=== PATIENT | male | born 1950 | race Caucasian/White ===

== ENCOUNTER 2018-07-03 13:09 | Inpatient (IN) | payer MEDICARE ==
[~2018-07-03] VITALS: Ht 177.8 cm; Wt 133.7 kg
[2018-07-03 13:45] LABS: Source, Urine Clean Catch
[2018-07-03 13:57] LABS: Bilirubin, Urine Neg (Neg); Blood, Urine Neg (Neg); Glucose Qualitative, Urine Neg (Neg); Ketones, Urine 3+ (Neg); Leukocyte Esterase, Urine Neg (Neg); Nitrite, Urine Neg (Neg); Protein, Urine 3+ (Neg); Specific Gravity, Urine 1.015 (1.003-1.022); Urobilinogen, Urine NORM (Normal)
[2018-07-03 14:04] LABS: BASOPHILS ABSOLUTE AUTO 0.05 K/mm3 (0.00-0.23); BASOPHILS PERCENT AUTO 1 % (0-2); EOSINOPHILS ABSOLUTE AUTO 0.05 K/mm3 (0.00-0.68); EOSINOPHILS PERCENT AUTO 1 % (0-6); Hematocrit 44.5 % (37.0-53.0); Hemoglobin 15.1 g/dL (13.5-17.5); IMMATURE GRAN ABSOLUTE AUTO 0.02 K/mm3 (0.00-0.10); IMMATURE GRAN PERCENT AUTO 0 % (0-1); LYMPHOCYTES ABSOLUTE AUTO 1.11 K/mm3 (0.84-5.20); LYMPHOCYTES PERCENT AUTO 16 % (21-46); MONOCYTES ABSOLUTE AUTO 0.31 K/mm3 (0.16-1.47); MONOCYTES PERCENT AUTO 5 % (4-13); Mean Corpuscular HGB 30.5 pg (26.0-34.0); Mean Corpuscular HGB Conc 33.9 g/dL (31.5-36.5); Mean Corpuscular Volume 90 fL (80-100); Mean Platelet Volume 9.9 fL (9.1-12.4); NEUTROPHILS ABSOLUTE AUTO 5.31 K/mm3 (1.96-9.15); NEUTROPHILS PERCENT AUTO 78 % (41-73); Platelet Count 183 K/mm3 (150-400); RDW Coefficient Variation 12.2 % (11.7-14.2); RDW Standard Deviation 39.7 fL (35.1-46.3); Red Blood Cell Count 4.95 M/mm3 (4.30-5.90); White Blood Cell Count 6.85 K/mm3 (4.00-11.30)
[2018-07-03 14:25] LABS: Appearance, Urine Clear (Clear); Color, Urine Yellow (P-Yellow)
[2018-07-03 14:26] LABS: Bacteria Few /hpf; Red Blood Cells, Urine 0-2 /hpf (0-2); Squamous Epithelial Cells Few /hpf (Few); White Blood Cells, Urine 0-2 /hpf (0-5)
[2018-07-03 14:35] LABS: Alanine Aminotransfer (ALT/SGP 27 U/L (12-78); Albumin/Globulin Ratio 1.1 (0.8-1.8); Alk Phos 102 U/L (50-136); Anion Gap 9 mmol/L (6-16); Aspartate Aminotrans (AST/SGOT 15 U/L (12-37); Bilirubin, Total 0.9 mg/dL (0.1-1.0); Blood Urea Nitrogen 11 mg/dL (8-24); Bun/Creatinine Ratio 14.8 (12.0-20.0); CO2, Blood 27 mmol/L (21-32); Calcium, Blood 8.7 mg/dL (8.5-10.1); Chloride, Blood 104 mmol/L (98-108); Creatinine, Blood 0.74 mg/dL (0.60-1.20); Globulin, Blood 3.6 g/dL (2.2-4.0); Glomerular Filtration Rate >60 (60-); Glucose, Blood 109 mg/dL (70-99); Potassium, Blood 3.1 mmol/L (3.5-5.5); Sodium, Blood 140 mmol/L (136-145); Total Protein, Blood 7.6 g/dL (6.4-8.2)
[2018-07-03] MEDS ORDERED: TAMS.4ER PO (18:36)
[2018-07-03] MEDS ORDERED: AMLO5 PO (18:38)
[2018-07-03] MEDS ORDERED: LISI5 PO (18:38)
--- NOTE | 2018-07-03 19:30 | NUR ---
ASSUMED CARE PT RESTING IN ROOM COMFORTBALY W/ S/O AT BEDSIDE. PER DAY SHIFT PT CAME TO UMIT FROM ED AT SHIFT CHANGE. PT WAS BROUGHT BY AMBULANCE TO ED FOR STROKE LIKE SYMPTOMS. PT HAS L SIDED WEAKNESS AND DEFICITS, W/ L FACIAL DROOP. PT REPORTS NUMBNESS TO L ARM AND LEG. REFLEXES INTACT ON L HAND AND FOOT. DICE MANAGER IS VERY WEAK TO L HAND. EYE MOVMENT BRISK. SPEECH IS SLOW TO RESPOND, PT REPORTS TONGUE FEELS NUMB. PT HAD HIGH BP UPON ARRIVAL, WILL MONITOR. LR INFUSING IN PIV. PT DENIES PAIN OR SOB. RESP EVEN UNLBAORED ON RA W/ SATS >92%. CONDOM CATH IN PLACE D/T INCONTINENCE. CALL LIGHT IS IN REACH.
--- NOTE | 2018-07-03 19:53 | NUR ---
SHIFT SUMMARY ASSUMED CARE OF PT FROM ED @1820. PT TO ROOM VIA [facility] WITH ED NURSE JUDD HYLTON. PT TALKING TO STAFF HE ROLLED IN. NOTICEABLE LEFT FACIAL DROOP, SLIGHTLY SLURRED SPEECH, LEFT ARM AND LEG DEFICITS. PT HAS TWO IV LINES, FLUSHED WITH 10 NS, LR STARTED 50ML/HR. NO DEFICITS NOTED RIGHT SIDE, STRONG. LEFT LEG ABLE TO SHOW SLIGHT MOVEMENT, REPORTS NUMBNESS BUT CAN IDENTIFY WHAT TOE THIS NURSE IS TOUCHING. NO TOE MOVEMENT. LA ABLE TO MOVE SLIGHTLY, LH ASSOCIATE DIRECTOR CAREER SERVICES SUBTLE BUT NOTICEABLE. EOM ASSESSED. NO DEFICIT RIGHT SIDE, LEFT SIDE DELAYED. NYSTAGMUS NOTED IN LEFT EYE UPON ASSESMENT. PT STATES TONGUE IS NUMB AND FEELS "LARGE". PERIPHERAL PULSES STRONG X 4. LUNG SOUNDS CLEAR TO AUSCULTATION. BEDSIDE QUICK EVAL COMPLETED BY KISHAN KAT RN TO DETERMINE IF MEDS CAN BE GIVEN WITH APPLESAUCE. PT TOLERATES MEDS WITH APPLESAUCE WELL. BP UPON ADMISSION TO PCU [address] MORRISSEY, LISINOPRIL GIVEN EARLY. CONDOM CATH PLACED DUE TO INCONTINENCE AND REPORTED PRESSURIZED URINATING IN ED. REPORT GIVEN TO ONCOMING NURSE.
[2018-07-04 04:28] LABS: BASOPHILS ABSOLUTE AUTO 0.03 K/mm3 (0.00-0.23); BASOPHILS PERCENT AUTO 1 % (0-2); EOSINOPHILS ABSOLUTE AUTO 0.09 K/mm3 (0.00-0.68); EOSINOPHILS PERCENT AUTO 1 % (0-6); Hematocrit 42.9 % (37.0-53.0); Hemoglobin 14.5 g/dL (13.5-17.5); IMMATURE GRAN ABSOLUTE AUTO 0.02 K/mm3 (0.00-0.10); IMMATURE GRAN PERCENT AUTO 0 % (0-1); LYMPHOCYTES ABSOLUTE AUTO 1.48 K/mm3 (0.84-5.20); LYMPHOCYTES PERCENT AUTO 23 % (21-46); MONOCYTES ABSOLUTE AUTO 0.41 K/mm3 (0.16-1.47); MONOCYTES PERCENT AUTO 7 % (4-13); Mean Corpuscular HGB 30.5 pg (26.0-34.0); Mean Corpuscular HGB Conc 33.8 g/dL (31.5-36.5); Mean Corpuscular Volume 90 fL (80-100); Mean Platelet Volume 9.9 fL (9.1-12.4); NEUTROPHILS ABSOLUTE AUTO 4.29 K/mm3 (1.96-9.15); NEUTROPHILS PERCENT AUTO 68 % (41-73); Platelet Count 182 K/mm3 (150-400); RDW Coefficient Variation 12.3 % (11.7-14.2); RDW Standard Deviation 40.3 fL (35.1-46.3); Red Blood Cell Count 4.76 M/mm3 (4.30-5.90); White Blood Cell Count 6.32 K/mm3 (4.00-11.30)
[2018-07-04 04:46] LABS: Alanine Aminotransfer (ALT/SGP 21 U/L (12-78); Albumin, Blood 3.6 g/dL (3.4-5.0); Albumin/Globulin Ratio 1.1 (0.8-1.8); Alk Phos 82 U/L (50-136); Anion Gap 7 mmol/L (6-16); Aspartate Aminotrans (AST/SGOT 12 U/L (12-37); Blood Urea Nitrogen 9 mg/dL (8-24); Bun/Creatinine Ratio 11.7 (12.0-20.0); CO2, Blood 29 mmol/L (21-32); Calcium, Blood 8.6 mg/dL (8.5-10.1); Chloride, Blood 106 mmol/L (98-108); Creatinine, Blood 0.77 mg/dL (0.60-1.20); Globulin, Blood 3.4 g/dL (2.2-4.0); Glomerular Filtration Rate >60 (60-); Glucose, Blood 115 mg/dL (70-99); Magnesium, Blood 2.3 mg/dL (1.6-2.4); Phosphorus, Blood 2.7 mg/dL (2.5-4.9); Sodium, Blood 142 mmol/L (136-145)
--- NOTE | 2018-07-04 06:44 | NUR ---
SHIFT SUMMARY PT RESTING IN ROOM COMFORTABLY W/ FAMILY AT BEDSIDE. PT HAD NO ACUTE CHANGES IN STATUS OVERNIGHT. NEURO CHECKS PERFORED Q2HRS, NO CHANGES, CONT TO HAVE L SIDED DEFECITS. RESP EVEN UNLABORED ON RA W/ SATS >92%. DENIES CP OR SOB. PT HAS CONCOM CATH IN PLACE DRAINING TO GRAVITY. DENIES OTHER NEEDS. CALL LIGHT IN REACH.
--- NOTE | 2018-07-04 17:45 | NUR ---
CIWA CONTINUALLY INCREASING. PT MEDICATED PER EMAR AND PARAMETERS FOR CIWA SCORE WITH NO IMPROVEMENT. DR. SALVADOR CALLED AND ORDERS FOR PRECEDEX DRIP AND TRANSFER TO ICU. PT INFORMED AND STARTED PUNCHING WALL AND YELLING. ELMO NOWAK CALLED AND SECURITY IN ROOM. PT CALMED DOWN AND APOLOGIZED. PT HAD RIPPED OFF BAKARI VEST SOON IT WAS PLACED ON. REPORT CALLED TO ICU NURSE. PT TAKEN TO ICU.
--- NOTE | 2018-07-04 18:10 | NUR ---
SHIFT SUMMARY PT ALERT AND ORIENTED TO SELF, FAMILY, DATE, SITUATION. BP HAS BEEN ELEVATED THROUGHOUT SHIFT, AND DR. HERNANDEZ NOTIFIED. DR. HERNANDEZ STATES TO MEDICATE IF SBP >200. FAMILY AT BEDSIDE ALL SHIFT. PT WORKED WITH PT THIS SHIFT. SPEECH THERAPY ALSO EVALUATED AND NEW ORDERS FOR PRECAUTIONS. CONDOM CATH IN PLACE FOR COMFORT. NO OTHER CHANGES THIS SHIFT. WILL CONTINUE TO MONITOR AND REPORT TO ONCOMING RN. CALL LIGHT IN REACH.
[2018-07-05 04:23] LABS: Anion Gap 5 mmol/L (6-16); Blood Urea Nitrogen 10 mg/dL (8-24); Bun/Creatinine Ratio 13.1 (12.0-20.0); CO2, Blood 30 mmol/L (21-32); Calcium, Blood 8.8 mg/dL (8.5-10.1); Chloride, Blood 107 mmol/L (98-108); Creatinine, Blood 0.76 mg/dL (0.60-1.20); Glomerular Filtration Rate >60 (60-); Glucose, Blood 118 mg/dL (70-99); Potassium, Blood 3.5 mmol/L (3.5-5.5); Sodium, Blood 142 mmol/L (136-145)
--- NOTE | 2018-07-05 04:44 | NUR ---
SHIFT SUMMARY PT A&O X4. PT CONTINUES TO HAVE L SIDED DEFICIT. LUNG SOUNDS CLEAR T/O. SPO2 > 92% ON RA. MONITOR SHOWS NSR, HR 70'S. BP CONTINUES TO BE ELEVATED, BUT BELOW PRN HYDRALAZINE PARAMATERS, SEE VS. OTHERWISE VSS. Q2H REPOSITIONING PROVIDED, PT ABLE TO ASSIST W/ REPOSITIONING. CONDOM CATH PATENT AND DRAINING CLEAR DARK YELLOW URINE. LR GTT INFUSING PER ORDERS. SON AT BEDSIDE AT BEGINNING OF SHIFT STATING PREFERENCE FOR PT TO DISCHARGE TO SNF IN [place] WHEN READY FOR DISCHARGE. PT IN BED W/ CALL LIGHT IN REACH. WILL CONTINUE TO MONITOR AND PROVIDE CARE UNTIL REPORT OFF TO DAY SHIFT RN.
--- NOTE | 2018-07-05 07:51 | NUR ---
AM NOTE. ASSUMED CARE OF PT APROX 0700, PT IS A&Ox4, PT WAS ADMITTED DUE TO CVA W/LEFT SIDED WEAKNESS, PT STATES HE HAS FEELING IN THE LEFT SIDE BUT JUST CANNOT "MAKE ANYTHING WORK." PT WAS REQUESTING TO GET UP IN A CHAIR TODAY AND HAVE A BATH. TELE INTACT, NSR IN THE 70'S PER WORK ENVIRONMENT SAFETY INSPECTOR, BP169/102, TRACE EDEMA NOTED TO THE PT'S BLLE. L/S CLEAR T/O ON RA WITH SATS >90%. BT PRESENT AND HYPOACTIVE,ABD IS SLIGHTLY FRIM AND NONTENDER TO PALP. SON AT THE BEDSIDE IS REQUESTING AND UPDATE FROM PROVIDER ON MRI RESULTS AND STATUS UPDATE. CALL LIGHT IN REACH, BED IS LOCKED AND LOW WILL CONTINUE TO MONITOR.
--- NOTE | 2018-07-05 18:17 | NUR ---
SHIFT SUMMARY. NO ACUTE CHANGES NOTED, PT WAS SEEN BY P.T. 2 TIMES TODAY WITH GOOD RESULTS. PT'S VS HAVE BEEN STABLE T/O SHIFT. PT IS CURRENTLY MED NO TELE STATUS, WHEN TELE WAS D/C'D THE PT HAD NOT HAD ANY CARDIAC EVENTS ON TELE. PT'S SON AND S.O. HAVE BEEN AT THE BEDSIDE MOST OF THE DAY. THE PT'S SON DROVE DOWN TO [place] TO TOUR A SNF THAT HE WOULD LIKE THE PT BE D/C'D TO. OUTSIDE LABORER HAS BEEN CONSULTED FOR D/C PLANNING. PT REQUESTED TO GET UP IN A W/C TO GET OUTSIDE OF HIS ROOM, [facility]ICHARD LIFT WAS USED AND PT IS CURRENTLY UP IN W/C. CALL LIGHT IN REACH, WILL CONTINUE TO MONITOR UNTIL REPORT IS GIVEN TO ONCOMING RN.
[2018-07-06 04:29] LABS: Anion Gap 6 mmol/L (6-16); Blood Urea Nitrogen 13 mg/dL (8-24); Bun/Creatinine Ratio 16.6 (12.0-20.0); CO2, Blood 29 mmol/L (21-32); Calcium, Blood 8.9 mg/dL (8.5-10.1); Chloride, Blood 107 mmol/L (98-108); Creatinine, Blood 0.79 mg/dL (0.60-1.20); Glomerular Filtration Rate >60 (60-); Glucose, Blood 115 mg/dL (70-99); Potassium, Blood 3.4 mmol/L (3.5-5.5); Sodium, Blood 142 mmol/L (136-145)
--- NOTE | 2018-07-06 04:29 | NUR ---
SHIFT SUMMARY PT A&O X4 W/ L FACIAL DROOP, L-SIDED DEFICIT, UNABLE TO MOVE L ARM AND L LEG. PT IN WHEELCHAIR OUTSIDE OF ROOM W/ FAMILY AT BEGINNING OF SHIFT, TRANSFERRED BACK TO BED W/ LIFT. Q2H REPOSITIONING BY STAFF. LUNG SOUNDS CLEAR T/O. SPO2 > 90% ON RA. MONITOR SHOWS NSR. BP'S CONTINUE TO BE HYPERTENSIVE, NOT REQUIRING PRN HYDRALAZINE. PT NOW VOIDING IN URINAL W/ EPISODES OF INCONTINENCE. WILL CONTINUE TO MONITOR AND PROVIDE CARE UNTIL REPORT OFF TO DAY SHIFT RN.
--- NOTE | 2018-07-06 11:25 | NUR ---
AM NOTE PT ALERT AND COOPERATIVE. SR. GAPS IN MEMORY NOTED. TALKED WITH PT ABOUT SWALLOW PRECAUTIONS, MEALS, FLUIDS. NOTED POSSIBEL FOOT DROP LEFT FOOT. PLACED A JONNATHAN BOOT ON LEFT FOOT. ROM TO LEFT LEG DONE. PT C/O OF LEFT SHOULDER BEING SORE. PT HAS NO MOVEMENT LEFT UE. HIS ARM FLOOPS ALL OVER. STAFF HAS BEEN CUEING HIM TO PROTECT AND HOLD HIS LEFT ARM WITH HIS RIGHT ARM. SLING IN ROOM FOR WHEN WE GET HIM UP. BP ELEVATED. HYDRALAZINE 5MG GIVEN X1. BP DID DECREASE PRIOR TO AM MEDICATIONS. DR HERNANDEZ ORDER AN INCREASE IN LISINORIL DOSE AND TO START METOPROLOL. PT ABLE TO TAKE PILLS WITH APPLESAUCE WITHOUT DIFFICULY. PT ABLE TO FEED HIMSELF WITH SET UP. PT INTERMITANTLY EFFECTIVE WITH URINAL. CONDOM CATH WAS TRIED EARLIER IN ADMISSION AND WAS REPORTED TO BE INEFFECTIVE. WORKING WITH PT TO USE HIS URINAL HIMSELF. PT FATIGUES QUICKLY. CONTINUE POT.
--- NOTE | 2018-07-06 13:50 | NUR ---
TRANSFER TO 327 PT REPORT CALLED TO RECEIVING RN. PT CURRENTLY PARTICIPATION IN P.T. WILL TRANSFER AFTER. CONTINUE POT.
--- NOTE | 2018-07-06 17:19 | NUR ---
PT A PCU TRANSFER THIS AFTERNOON. PT A/OX4. PT WITH CVA WITH LEFT SIDE DEFECIT. LEFT ARM FLACCID, PT COULD NOT MOVE FINGERS BUT DOES HAVE SOME INVOLUNTARY REFLEX AT TIMES. PT IS ABLE TO PUSH WITH LEFT LEG WHEN IT IS BENT UNABLE TO MOVE OR WIGGLE TOES WHEN LEG IS STRAIGHT. LEFT FACIAL DROOP, NO DEFECIT NOTED WITH SWALLOWING. PUPILS EQUAL, NOTED TO HAVE A FLUTTER TO BILATERAL EYES WHICH PT SPOUSE REPORTS HIS EYES HAVE AWLAYS "DANCED" PT ABLE TO ASSIST WITH REPOSITIONING IN BED. LIFT UP TO CHAIR THIS AFTERNOON. LS CLEAR, ON RA. HRR. SLING TO LEFT ARM AND ELEVATED ON PILLOWS, HEAL PROTECTOR TO LEFT FOOT. PT VOIDS SMALL AMOUNTS, POST VOID BLADDER SCAN OF 0. PT AWAITING IRU BED AT THIS TIME. NO OTHER ACUTE CHANGES SINCE ARRIVAL TO FLOOR.
--- NOTE | 2018-07-06 17:34 | NUR ---
SHIFT SUMMARY PATIENT ARRIVED FROM PCU AT 1400. PATIENT IS COOPERATIVE. USED RICHARD LIFT TO GET PATIENT TO CHAIR FOR APPROX 30 MINUTES, PATIENT TOLERATED WELL. ONCE PATIENT WAS BACK IN BE PATIENT ATTEMPTED TO HAVE A BOWEL MOVMENT, BUT ONLY PASSED GAS. PATIENT IS USING URINAL, HE STATES THAT WHEN HE NEEDS TO GO IT IS A SUDDEN URGENCY AND HE DOSENT ALWAYS MAKE IT. PATIENTS AND SON ARE AT BEDSIDE.
--- NOTE | 2018-07-06 21:32 | NUR ---
APPROXIMATELY 20:15 HRS: GAVE MEDS PER EMAR AND ASSESSED PATIENT; PATIENT IS AO X3, DENIES PAIN AT THIS TIME. HE IS ABLE TO HELP REPOSITION HIMSELF, AND TAKES HIS MEDS WHOLE IN APPLESAUCE TONIGHT. NEURO CHECKS FIND CONTINUED LEFT SIDE WEAKNESS, THE LUE IS FLACCID AND FALLS TO THE BED, THE LLE FUNCTION ALSO FALLS TO GRAVITY. HE CAN PUSH HIS LEFT HEEL ALONG HIS RIGHT CALF IF POSITIONED TO START. HE HAS LEFT FACIAL DROOP. WE TALKED ABOUT STRETCHING THE LEFT HAND AND ROM EXERCIZES, AND SAME FOR THE LOWER EXTREMITY WEAKNESS. LEFT HEEL BOOT PLACED. AND LEFT ARM SLING IN PLACE.
[2018-07-07 05:17] LABS: Anion Gap 8 mmol/L (6-16); Blood Urea Nitrogen 20 mg/dL (8-24); Bun/Creatinine Ratio 24.6 (12.0-20.0); CO2, Blood 26 mmol/L (21-32); Calcium, Blood 8.7 mg/dL (8.5-10.1); Chloride, Blood 108 mmol/L (98-108); Creatinine, Blood 0.81 mg/dL (0.60-1.20); Glomerular Filtration Rate >60 (60-); Glucose, Blood 120 mg/dL (70-99); Potassium, Blood 3.7 mmol/L (3.5-5.5); Sodium, Blood 142 mmol/L (136-145)
--- NOTE | 2018-07-07 18:36 | NUR ---
SHIFT SUMMARY PT WORKED WITH PHYSICAL THERAPY THIS SHIFT AND STOOD AT SIDE OF BED. PT HAS HAD NO COMPLAINTS OF PAIN THIS SHIFT. BED BATH GIVEN AND PT TOLERATED WELL. PT'S LEFT SIDE CONTINUES TO BE FLACCID OF LEFT ARM/HAND AND SLIGHT MOVEMENT OF LEFT LEG. PLANS FOR PT TO HAVE OCCUPATIONAL THERAPY EVALUATE HIM AND THEN POSSIBLE DISCHARGE TOMORROW. PT UP IN THE CHAIR FOR DINNER WITH LIFT. PT DOESN'T HAVE MUCH OF AN APPETITE. NO ACUTE CHANGES THIS SHIFT. CALL LIGHT IN REACH. WILL CONTINUE TO MONITOR AND REPORT TO ONCOMING RN.
[2018-07-08 04:50] LABS: BASOPHILS ABSOLUTE AUTO 0.04 K/mm3 (0.00-0.23); BASOPHILS PERCENT AUTO 1 % (0-2); EOSINOPHILS PERCENT AUTO 1 % (0-6); Hematocrit 44.6 % (37.0-53.0); Hemoglobin 14.7 g/dL (13.5-17.5); IMMATURE GRAN ABSOLUTE AUTO 0.03 K/mm3 (0.00-0.10); IMMATURE GRAN PERCENT AUTO 0 % (0-1); LYMPHOCYTES ABSOLUTE AUTO 1.49 K/mm3 (0.84-5.20); LYMPHOCYTES PERCENT AUTO 20 % (21-46); MONOCYTES ABSOLUTE AUTO 0.63 K/mm3 (0.16-1.47); MONOCYTES PERCENT AUTO 8 % (4-13); Mean Corpuscular Volume 91 fL (80-100); Mean Platelet Volume 10.2 fL (9.1-12.4); NEUTROPHILS ABSOLUTE AUTO 5.29 K/mm3 (1.96-9.15); NEUTROPHILS PERCENT AUTO 70 % (41-73); Platelet Count 189 K/mm3 (150-400); RDW Coefficient Variation 12.3 % (11.7-14.2); RDW Standard Deviation 40.8 fL (35.1-46.3); White Blood Cell Count 7.58 K/mm3 (4.00-11.30)
[2018-07-08 05:08] LABS: Alanine Aminotransfer (ALT/SGP 69 U/L (12-78); Albumin, Blood 3.6 g/dL (3.4-5.0); Albumin/Globulin Ratio 1.1 (0.8-1.8); Alk Phos 84 U/L (50-136); Anion Gap 6 mmol/L (6-16); Aspartate Aminotrans (AST/SGOT 50 U/L (12-37); Bilirubin, Total 0.7 mg/dL (0.1-1.0); Blood Urea Nitrogen 24 mg/dL (8-24); Bun/Creatinine Ratio 28.5 (12.0-20.0); CO2, Blood 28 mmol/L (21-32); Calcium, Blood 8.8 mg/dL (8.5-10.1); Chloride, Blood 109 mmol/L (98-108); Creatinine, Blood 0.84 mg/dL (0.60-1.20); Globulin, Blood 3.4 g/dL (2.2-4.0); Glomerular Filtration Rate >60 (60-); Glucose, Blood 118 mg/dL (70-99); Magnesium, Blood 2.4 mg/dL (1.6-2.4); Phosphorus, Blood 3.8 mg/dL (2.5-4.9); Potassium, Blood 3.7 mmol/L (3.5-5.5); Sodium, Blood 143 mmol/L (136-145)
--- NOTE | 2018-07-08 07:25 | NUR ---
07/08/18 0600 STATUS UNCHANGED FROM INITIAL ASSESSMENT LAST NIGHT. PT HELPS WITH TURNING AND WAS MEDICATED ONCE FOR LEFT SHOULDER DISCOMFORT. VITALS STABLE.
--- NOTE | 2018-07-08 12:52 | NUR ---
Echocardiogram using 9.0ml of agitated saline contrast performed.
--- NOTE | 2018-07-08 18:30 | NUR ---
PT. SLEEPING REFUSED DINNER, HAD NAUSEA WHICH I COVERED WITH ZOFRAN. SPOUSE GOING HOME FOR THE NIGHT WILL BE BACK IIN THE MORNING PRIOR TO PT DISCHARGE. PT. DISCHARGING IN AM AT 0900 TO IRU IN [place]. STILL NEEDS TO WRITE DC ORDERS AND MEDS FAXED TO FACILITY. PT. HAS HAD 3 BM'S THIS SHIFT IS USING THE BARIATRIC BEDPAN.
--- NOTE | 2018-07-09 05:49 | NUR ---
VSS, AFEBRILE, A/O, DOWN ON THE LEFT SIDE S/P CVA, SLEPT WELL OVERNOC, NO COMPLAINTS, NO SIGNIFICANT CHANGES NOTED, WILL REPORT TO ON-COMING SHIFT.
--- NOTE | 2018-07-09 11:42 | NUR ---
09 REPORT CALLED TO KAUSHAL AT IRU IN [place]. PT. TRANSFERRED VIA [facility] FOR IRU IN [place]. SPOUSE TO FOLLOW. PT. LEFT AT 0930.
[2018-07-09] MEDS ORDERED: Acetaminophen325 M1 PO (14:10)
[2018-07-09] MEDS ORDERED: ASPI325 PO (14:11)
[2018-07-09] MEDS ORDERED: Lipitor80 MG PO (14:12)
[2018-07-09] MEDS ORDERED: DOCU100 PO (14:13)
[2018-07-09] MEDS ORDERED: ENOX40I SC (14:14)
[2018-07-09] MEDS ORDERED: ESCI10 PO (14:15)
[2018-07-09] MEDS ORDERED: HYDR10 PO (14:16)
[2018-07-09] MEDS ORDERED: METO25 PO (14:16)
[2018-07-09] MEDS ORDERED: SPIR25 PO (14:16)
[2018-07-09] MEDS ORDERED: POTCHL10ER PO (14:17)
== END 2018-07-09 09:29 | DRG 65 ==
LOC: ER 13:09 → PCU 17:11 → MEDS 07-06 14:06 → ENPENDDIS 07-09 08:30 → MEDS 07-09 09:29
PROVIDERS: Emergency Medicine; Internal Medicine Endocrinology, Diabetes & Metabolism; ADMIT Hospitalist
DX: I63.411 Cerebral infarction due to embolism of right middle cerebral artery (principal); I16.1 Hypertensive emergency; G81.94 Hemiplegia, unspecified affecting left nondominant side; Z68.41 Body mass index [BMI] 40.0-44.9, adult; E87.6 Hypokalemia; E78.5 Hyperlipidemia, unspecified; N52.9 Male erectile dysfunction, unspecified; Z87.891 Personal history of nicotine dependence; Z91.14 Patient's other noncompliance with medication regimen; N40.0 Benign prostatic hyperplasia without lower urinary tract symptoms; E87.5 Hyperkalemia; E66.01 Morbid (severe) obesity due to excess calories; F32.9 Major depressive disorder, single episode, unspecified; I51.89 Other ill-defined heart diseases; I11.9 Hypertensive heart disease without heart failure
CPT/HCPCS: 36415; 70496; 70551; 80048; 80053; 81001; 83735; 84100; 85025; 92526; 92610; 93005; 93010; 93306; 96374-59; 97110; 97112; 97161; 97165; 97530; 99285-25; J0360; J1650; J2405; J3480; J7120; Q9967

== ENCOUNTER 2019-03-04 11:14 | Day surgery (SDC) | payer MEDICARE ==
[~2019-03-04] VITALS: Ht 172.7 cm; Wt 117.6 kg
[~2019-03-04 11:14] MED LIST: AMLO5 PO; ASPI325 PO; Acetaminophen325 M1 PO; DOCU100 PO; ENOX40I SC; ESCI10 PO; HYDR10 PO; LISI5 PO; Lipitor80 MG PO; METO25 PO; POTCHL10ER PO; SPIR25 PO; TAMS.4ER PO
--- NOTE | 2019-03-04 14:15 | NUR ---
03/04/19 1415 Malena Trivedi PT INSTRUCTED TO AVOID BLOOD THINNERS (ASPIRIN, IBUPROFEN) FOR 1 WEEK. PT ALSO INSTRUCTED TO REMAIN ON SOFT FOODS FOR THE REMAINDER OF THE DAY AND TO RESUME REGULAR DIET TOMORROW.
== END 2019-03-04 13:52 | disposition home or self-care (01) ==
LOC: ORSCSDS 11:14
PROVIDERS: Internal Medicine Gastroenterology
PROC: 0DBK8ZX Excision of Ascending Colon, Via Natural or Artificial Opening Endoscopic, Diagnostic (ICD-10-PCS; principal; 2019-03-04 12:45)
PROC: 0DBL8ZX Excision of Transverse Colon, Via Natural or Artificial Opening Endoscopic, Diagnostic (ICD-10-PCS; principal; 2019-03-04 12:45)
DX: Z12.11 Encounter for screening for malignant neoplasm of colon (principal); D12.2 Benign neoplasm of ascending colon; D12.3 Benign neoplasm of transverse colon; K57.30 Diverticulosis of large intestine without perforation or abscess without bleeding; K64.8 Other hemorrhoids; I10 Essential (primary) hypertension; Z86.73 Personal history of transient ischemic attack (TIA), and cerebral infarction without residual deficits; E66.01 Morbid (severe) obesity due to excess calories; Z68.41 Body mass index [BMI] 40.0-44.9, adult
CPT/HCPCS: 88305; J2704; J7040; J7120

== ENCOUNTER 2020-02-08 10:23 | Day surgery (SDC) | payer MEDICARE ==
--- NOTE | 2020-02-08 11:04 | NUR ---
02/08/20 1104 Yahaira Núñez 1 TRY RIGHT HAND NO FLASH 2 TRY RIGHT WRIST NO FLASH
--- NOTE | 2020-02-08 11:42 | NUR ---
02/08/20 1142 Thania Martinez V IV RESTARTED IN PROCEDURE ROOM, 20G PLACED IN R HAND BY DR. NEWMAN.
== END 2020-02-08 12:25 | disposition home or self-care (01) ==
LOC: ORSCSDS 10:23
PROVIDERS: Internal Medicine Gastroenterology
PROC: 0DBK8ZX Excision of Ascending Colon, Via Natural or Artificial Opening Endoscopic, Diagnostic (ICD-10-PCS; principal; 2020-02-08 11:30)
PROC: 0DBL8ZX Excision of Transverse Colon, Via Natural or Artificial Opening Endoscopic, Diagnostic (ICD-10-PCS; principal; 2020-02-08 11:30)
DX: Z86.010 Personal history of colon polyps (principal); D12.2 Benign neoplasm of ascending colon; D12.3 Benign neoplasm of transverse colon; K57.30 Diverticulosis of large intestine without perforation or abscess without bleeding; K64.8 Other hemorrhoids; I10 Essential (primary) hypertension; E78.5 Hyperlipidemia, unspecified; F32.9 Major depressive disorder, single episode, unspecified; Z86.73 Personal history of transient ischemic attack (TIA), and cerebral infarction without residual deficits; Z79.82 Long term (current) use of aspirin; Z79.899 Other long term (current) drug therapy
CPT/HCPCS: 88305; J2704; J7120